=== PATIENT | female | born 1930 | race Caucasian/White ===

== ENCOUNTER → 2017-06-02 | Outpatient (CLI) | payer MEDICARE ==
[~2017-06-02] MED LIST: SODIUM CHLORIDE 0.9% 500 ML in EMPTY BAG 1 BAG IV PRN; ZOLEDRONIC ACID 5 MG in SODIUM CHLORIDE 0.9% 100 ML IV ONE
[2017-06-02 10:47] VITALS: BP 177/91; PULSE 79; RESP 18; TEMP 97.7
== END | disposition home or self-care (01) ==
LOC: PROCWHC3 10:18
PROVIDERS: ATTEND Physician Assistant Medical
DX: M81.0 Age-related osteoporosis without current pathological fracture (principal)
CPT/HCPCS: 96365; J3489

== ENCOUNTER → 2017-06-09 | Outpatient (CLI) | payer MEDICARE ==
--- NOTE | 2017-06-10 11:02 | MM ---
Reason for exam: screening (asymptomatic). Last mammogram was performed 1 year and 1 month ago. History: Patient history of other cancer. Family history of breast cancer in mother at age 60. Physical Findings: A clinical breast exam by your physician is recommended on an annual basis and results should be correlated with mammographic findings. MG Screening Mammo w CAD Bilateral CC and MLO view(s) were taken. Prior study comparison: May 23, 2016, mammogram, performed at [facility]. May 10, 2015, mammogram, performed at [facility]. There are scattered fibroglandular densities. There is no discrete abnormality. No significant changes when compared with prior studies. ASSESSMENT: Negative, BI-RAD 1 RECOMMENDATION: Routine screening mammogram of both breasts in 1 year.
== END | disposition home or self-care (01) ==
LOC: RADMAMWWP 10:39
PROVIDERS: ATTEND Family Medicine
DX: Z12.31 Encounter for screening mammogram for malignant neoplasm of breast (principal)

== ENCOUNTER 2020-01-21 14:46 | Emergency (ER) | payer MEDICARE ==
--- NOTE | 2020-01-21 15:45 | XR ---
EXAMINATION TYPE: XR pelvis AP view DATE OF EXAM: 01/21/2020 CLINICAL HISTORY: pain TECHNIQUE: Single view the pelvis is submitted. FINDINGS: No evidence for fracture, dislocation or bony lesion. Joint spaces are well-preserved. S I joints appear symmetric. IMPRESSION: 1. No acute fracture or dislocation seen. ICD 10 NO FRACTURE, INITIAL EVALUATION
--- NOTE | 2020-01-21 15:47 | XR ---
EXAMINATION TYPE: XR lumbar spine 2 or 3V DATE OF EXAM: 01/21/2020 CLINICAL HISTORY: pain TECHNIQUE: Three views of the lumbar spine are submitted. COMPARISON: None. FINDINGS: Mild loss of height involving the superior endplate of L3 with loss of height estimated at 25%. No o bvious bony retropulsion seen. Retrolisthesis of L3 on L4 of 4 mm. Anterolisthesis of L4 and L5 of 5 mm. Moderate to severe multilevel degenerative disc space narrowing and spondylosis. Severe facet brain nt arthropathy. IMPRESSION: Mild superior endplate compression fracture of L3
[2020-01-21 15:55] VITALS: BP 162/85; PULSE 87; RESP 18; TEMP 99.5
[2020-01-21] MEDS ORDERED: ACET/COD 300 MG/30 MG STARTER PACK 6 TAB BTL PO STA (16:21)
--- NOTE | 2020-01-21 16:23 | ED ---
Back Pain HPI - General Chief Complaint: Back Pain/Injury Stated Complaint: Fall Time Seen by Provider: 01/21/20 14:55 Source: patient, family - History of Present Illness Initial Comments: 89-year-old feel present for low back pain. Patient states that when the restroom trying to burp pants she fell backwards falling onto her bottom. Patient states that she has had low back pain since. Patient states that she has had no difficulty urinating denies any loss of bowel bladder control denies a weakness or loss of sensation of the lower extremities. Patient states she has been moving slower than normal secondary to the pain. Patient denies any upper back or neck pain denies any injury to the head. Patient denies any injury to the chest or abdomen. Patient denies a PT inspiration. She states that she has no injuries of her upper or lower extremities. Patient is able to weight-bear without difficulty remaining review of systems negative upon arrival patient appears well signs of acute distress - Related Data Home Medications Medication Instructions Recorded Confirmed Ergocalciferol [Vitamin D2 50,000 unit PO Q7D 05/22/14 06/02/17 (DRISDOL)] Solifenacin Succinate [Vesicare] 10 mg PO DAILY 05/22/14 06/02/17 Montelukast [Singulair] 10 mg PO DAILY 05/26/16 06/02/17 metFORMIN HCL [Glucophage] 500 mg PO DAILY 05/26/16 06/02/17 Previous Rx's Medication Instructions Recorded Acetaminophen with Codeine 1 tab PO Q6H PRN 3 Days #12 tab 01/21/20 [Tylenol w/codeine #3] Allergies Allergy/AdvReac Type Severity Reaction Status Date / Time No Known Allergies Allergy Verified 01/21/20 14:53 Review of Systems ROS Statement: Those systems with pertinent positive or pertinent negative responses have been documented in the HPI. ROS Other: All systems not noted in ROS Statement are negative. Past Medical History Past Medical History: Cancer, GERD/Reflux, Hyperlipidemia Additional Past Medical History / Comment(s): hx cervical ca-1972, skin cancer (R) leg History of Any Multi-Drug Resistant Organisms: None Reported Past Surgical History: Back Surgery, Bladder Surgery, Hernia Repair, Hysterectomy, Orthopedic Surgery Additional Past Surgical History / Comment(s): BILAT CTR, FACE LIFT 1983, TUMMY TUCK-2001, LT KNEE SCOPE Past Anesthesia/Blood Transfusion Reactions: Motion Sickness Smoking Status: Former smoker Past Alcohol Use History: None Reported Past Drug Use History: None Reported General Exam - General Exam Comments Initial Comments: General: The patient is awake and alert, in no distress Eye: +3 mm pupils are equal, round and reactive to light, extra-ocular movements are intact. No nystagmus. There is normal conjunctiva bilaterally. No signs of icterus. Cardiovascular: There is a regular rate and rhythm. No murmur, rub or gallop is appreciated. Respiratory: Lungs are clear to auscultation, respirations are non-labored, breath sounds are equal. No wheezes, stridor, rales, or rhonchi. Gastrointestinal: Soft, non-distended, non-tender abdomen without masses or o rganomegaly noted. There is no rebound or guarding present. Musculoskeletal: Normal inspection of the cervicothoracic and lumbar spine. Patient is very minimal midline tenderness very mild at the base of the lumbar spine. Patient has paravertebral tenderness and tension palpable. Normal ROM of the lower extremity bilaterally she states this doesn't do some pain in the lower back. Strength 5/5 of the lower extremity is equal comparison bilaterally. Weightbears and elevates that difficulty Sensation intact of the lower extremity including the saddle region. Radial and DP pulses equal bilaterally 2+. Neurological: A&O x 3. CN II-XII intact grossly, There are no obvious motor or sensory deficits. Coordination appears grossly intact. Speech is normal. Skin: Skin is warm and dry and no rashes or lesions are noted. Psychiatric: Cooperative, appropriate mood & affect, normal judgment. Course Vital Signs 01/21/20 01/21/20 01/21/20 14:50 15:53 16:25 Temperature 99.9 F H 99.5 F 99.5 F Pulse Rate 78 87 87 Respiratory 16 18 18 Rate Blood Pressure 153/75 162/85 162/85 O2 Sat by Pulse 95 97 97 Oximetry Medical Decision Making - Medical Decision Making 89-year-old female presenting for cc of low back pain after fall. some mild midline tenderness, no LE weakness. no genitourinary complaints. Sesnation intact of the LE b/l. patient XR revealed a superior end plate compression fracture of L3. Patient has some noted retrolisthesis L4 was significant degenerative changes of the spine. Patient denies radiation of pain down legs. Patient appears well ambulatory. reviewed imaging with attending Lokesh Travis who is agreeable to discharge with TLSO brace rx and orthopedic spine f/u. Return parameters and importance of f/u were disucssed at length. patient provided pain medication and opioid start talking form discussed at length. Patient discharged appearing wel. Disposition Clinical Impression: L3 vertebral fracture, Retrolisthesis of vertebrae, Fall, Low back pain Disposition: HOME SELF-CARE Condition: Good Instructions (If sedation given, give patient instructions): Vertebral Compression Fracture (ED) Additional Instructions: Please use medication as discussed. Please follow-up with family doctor in 2 days, see [facility] and return for loss of bowel/bladder control, unable to urinate, weakness or loss of sensation of lower extremities. Please return to emergency room if the symptoms increase or worsen or for any other concerns. Prescriptions: Acetaminophen with Codeine [Tylenol w/codeine #3] 1 tab PO Q6H PRN 3 Days #12 tab PRN Reason: Severe Pain Is patient prescribed a controlled substance at d/c from ED?: Yes When asked, does pt state using other controlled substances?: No If prescribed controlled substance>3 days was MAPS reviewed?: Prescribed <3 Days If opioid is for acute pain is fill amount 7 days or less?: Yes If Rx opioid, was Start Talking consent form obtained?: Yes Referrals: Tamia Medina DO [Primary Care Provider] - 1-2 days Nehemiah Yuan DO [Doctor of Osteopathic Medicine] - 1-2 days Time of Disposition: 16:23
== END 2020-01-21 16:32 | disposition home or self-care (01) ==
LOC: EC 14:46
DX: M48.56XA Collapsed vertebra, not elsewhere classified, lumbar region, initial encounter for fracture (principal); M43.16 Spondylolisthesis, lumbar region; Z87.891 Personal history of nicotine dependence; Z85.41 Personal history of malignant neoplasm of cervix uteri; Z85.828 Personal history of other malignant neoplasm of skin
CPT/HCPCS: 72100; 72170; 99283

== ENCOUNTER → 2020-02-08 | Outpatient (CLI) | payer MEDICARE ==
[2020-02-08 11:16] LABS: Basophils % (A) 1 %; Eosinophils % (A) 0 %; HCT 39.7 % (34.0-46.0); HGB 13.6 gm/dL (11.4-16.0); Lymphocytes # (A) 1.3 k/uL (1.0-4.8); Lymphocytes % (A) 21 %; MCH 33.2 pg (25.0-35.0); MCHC 34.2 g/dL (31.0-37.0); MCV 97.1 fL (80.0-100.0); Mean Platelet Volume 7.1; Monocytes # (A) 0.3 k/uL (0-1.0); Monocytes % (A) 5 %; Neutrophils # (A) 4.6 k/uL (1.3-7.7); Neutrophils % (A) 72 %; Platelet Count 265 k/uL (150-450); RBC 4.09 m/uL (3.80-5.40); WBC 6.4 k/uL (3.8-10.6)
[2020-02-08 11:33] LABS: Calcium 9.8 mg/dL (8.4-10.2); Potassium 4.2 mmol/L (3.5-5.1)
[2020-02-08 11:57] LABS: Partial Thromboplastin Time 23.4 sec (22.0-30.0); Prothrombin Time 10.1 sec (9.0-12.0)
--- NOTE | 2020-02-08 14:52 | XR ---
EXAMINATION TYPE: XR chest 2V DATE OF EXAM: 02/08/2020 COMPARISON: 02/12/2011 INDICATION: Presurgical testing TECHNIQUE: Frontal and lateral views of the chest are obtained. FINDINGS: The heart size is normal. The pulmonary vasculature is normal. The lungs are clear. IMPRESSION: 1. No acute pulmonary process.
== END | disposition home or self-care (01) ==
LOC: LABPAT 09:34
PROVIDERS: ATTEND Orthopaedic Surgery Orthopaedic Surgery of the Spine
DX: Z01.818 Encounter for other preprocedural examination (principal); M84.40XA Pathological fracture, unspecified site, initial encounter for fracture
CPT/HCPCS: 36415; 71046; 80048; 85025; 85610; 85730; 86850; 86900; 86901; 93005

== ENCOUNTER 2020-02-13 09:15 | Observation (INO) | payer MEDICARE ==
[~2020-02-13 09:15] MED LIST changes: +DEXAMETHASONE SOD PHOSPHATE 10 MG/ML 1 ML VIAL IV ONE; +LIDOCAINE 1% (10MG/ML) FOR IV START INTRADERMA PRN; +ONDANSETRON 4 MG/2 ML VIAL IVP ONE; -SODIUM CHLORIDE 0.9% 500 ML in EMPTY BAG 1 BAG IV PRN; -ZOLEDRONIC ACID 5 MG in SODIUM CHLORIDE 0.9% 100 ML IV ONE; +ceFAZolin 1,000 MG in SODIUM CHLORIDE 0.9% IRRIGATIO 1,000 ML IRRIGATION ONE
[2020-02-13] MEDS ORDERED: ONDANSETRON 4 MG/2 ML VIAL ONE (09:42)
[2020-02-13 10:10] LABS: Glucose,Whole Blood 109 mg/dL (75-99)
[2020-02-13] MEDS: LACTATED RINGERS 1,000 ML IV SCH ×2 (10:10→17:55)
[2020-02-13] MEDS ORDERED: SUCCINYLCHOLINE CHLORIDE 100 MG/5 ML SYR IV ONE (10:15)
[2020-02-13] MEDS ORDERED: fentaNYL (PF) 50 MCG/ML 2 ML AMP ONE (10:15)
[2020-02-13] MEDS ORDERED: MIDAZOLAM 2 MG/2 ML VIAL ONE (10:15)
[2020-02-13] MEDS ORDERED: ePHEDrine SULFATE/0.9% NACL/PF 50 MG/5 ML SYRINGE IV ONE (10:15)
[2020-02-13] MEDS ORDERED: PHENYLEPHRINE-0.9% NACL SYG 1 MG/10 ML SYRINGE ONE (10:15)
[2020-02-13] MEDS ORDERED: PROPOFOL 10 MG/ML 20 ML VIAL IV ONE (10:15)
[2020-02-13] MEDS ORDERED: BUPIVACAINE (PF) 0.5% 30 ML VIAL SQ ONE ×2 (10:37→10:45)
[2020-02-13] MEDS ORDERED: IOPAMIDOL M200 10 ML VIAL MISCELLANE ONE ×2 (10:38→10:58)
[2020-02-13] MEDS ORDERED: ONDANSETRON 4 MG/2 ML VIAL IVP PRN (11:15)
[2020-02-13] MEDS ORDERED: IBUPROFEN 600 MG TAB PO PRN (11:15)
--- NOTE | 2020-02-13 11:20 | P.OP ---
Date of Procedure: 02/13/20 Preoperative Diagnosis: L3 osteoporotic vertebral compression fracture Status post fall at home Low back pain Failed conservative treatment. All 3 vertebral compression fracture Postoperative Diagnosis: Same Anesthesia: GETA Pathology: other (L3 vertebral body biopsy to pathology) Condition: stable Description of Procedure: BRIEF OPERATIVE NOTE Preoperative Diagnosis: L3 osteoporotic vertebral compression fracture Status post fall at home Low back pain Failed conservative treatment. L3 vertebral compression fracture Postoperative Diagnosis: Same Procedure: Kyphoplasty of L3 Vertebral body biopsy of L3 Use of biplanar fluoroscopic guidance Surgeon: Dr. Yuan Accounting Lecturer: Frank Jerry is present throughout the entire the case persistence during positioning, dissection, exposure, visualization, and all crucial elements of the case as well as closure. Anesthesia: General anesthesia per Dr. Mar Estimated blood loss: Less than 10 mL Specimen: Vertebral body of L3 biopsy sent to pathology in formalin Complications: None apparent Components implanted: Bone cement approximately 7 mL Disposition: To recovery room in good stable condition. OPERATIVE INDICATIONS The patient has been having issues in their back ever since sustaining an injury. She has history of some degenerative changes at her lumbar spine but sh e had significant worsening of her symptoms in her back after her fall. She is found have new L3 vertebral compression fracture and she attempted conservative treatment bracing. Despite bracing should continue to have severe pain and difficulty with any sort of mobilization ambulation. She is also having evidence of further collapse of vertebral body of L3. She denied any new issues in her lower extremities. The patient has been through conservative treatment. They attempted conservative care with bracing however they're not having any benefit despite brace use. They continue to have significant pain and debility due to their fracture. We discussed various treatment options including surgery, and the patient wishes to proceed with surgery We discussed the risk, patient's alternatives and benefits of surgery including but not limited to, risk of bleeding risk of infection, risk of need for further surgery, risk of decreased, loss of motion, loss of function, cement extravasation, nerve damage, paralysis, heart attack, blindness and . OPERATIVE SUMMARY After discussing all the risks, patient alternatives and benefits at length, the patient elected to proceed with surgical intervention, signed informed consent, and presented for their procedure. The patient was seen and examined in the preoperative holding area and the surgical site was marked. The patient was giv en antibiotics and brought to the operating room. The patient was sedated and intubated by anesthesia in standard fashion. The patient was positioned on to the operating room table in a prone position on the appropriate well-padded and well molded bilateral chest rolls. We were careful to pad any bony prominences and pressure points. We were careful to maintain the patient's cervical spine and good neutral alignment and position throughout. We used 2 C-arm machines to establish biplanar fluoroscopic guidance in AP and lateral positions. We were able to localize the fractures appropriately at L3. The patient was prepped and draped in a normal standard fashion. An appropriate timeout and keystone protocol performed. We were able to proceed with the surgery. The local wound area was infiltrated with local anesthetic. An incision was made over the lateral aspect of the pedicle over the appropriate levels with a small 2 mm stab incision on the right of L3. Intraoperative fluoroscopy was taken which showed a marker at the appropriate level. With the appropriate level positively confirmed, I was able to position a sharp trocar over the lateral aspect of the pedicle. As able to advance the trocar into the pedicle and into the posterior aspect of vertebral body being careful to avoid penetration cephalad caudad or medially. The trocar was placed appropriately into the posterior aspect of vertebral body at the appropriate levels. This was confirmed with C-arm guidance. With the trocar intact I was then able to take a bone biopsy with a biopsy punch . The biopsy of L3 vertebral body specimen was passed off to be sent to pathology in formalin. I was then able to place the kyphoplasty balloon within the vertebral body. The position was checked on C-arm. I was able to inflate the balloon under low pressure and visualization with C-arm. The balloon was well enclosed within the vertebral body. The cement was prepared. With the cement at appropriate working condition the balloons were deflated and removed. I was able to place bony cement with trocar with the cement delivery device under low pressure. It had good fill within the vertebral body. The cement spread nicely although it across the vertebral body. It seemed as though he may have gained some weight vertebral body itself. We placed a 7 mL of bone cement within the vertebral body There is no evidence of any extravasation of the cement posteriorly toward the canal. The cement was well contained at the appropriate levels. The cement was allowed to cure appropriately. The trochars removed and final images were taken on C-arm. This showed the cement at the appropriate levels. We were able to proceed with closure. The wound was cleaned and dried and dressed with the appropriate dressing. The drapes were broken down. The patient was gently rolled back onto their hospital bed being careful to maintain their cervical spine and good neutral alignment and position. They were woken up by anesthesia, extubated, and brought to the recovery room in good stable condition. The patient will be admitted to the hospital for observation and for appropriate postoperative care, medical management and monitoring. We will continue to follow them closely about the postoperative course.
--- NOTE | 2020-02-13 11:27 | FL ---
EXAMINATION TYPE: FL guidance operating room, XR lumbar spine 2 or 3V DATE OF EXAM: 02/13/2020 CLINICAL HISTORY: Low back pain. Compression fracture. TECHNIQUE: Fluoroscopy. Intraoperative 2 views lumbar spine. COMPARISON: Lumbar spine x-ray January 21, 2020.. FINDINGS: Fluoroscopic guidance was provided during kyphoplasty procedure performed by Dr. Yuan. A total of 61 seconds of fluoroscopic time was utilized during the procedure and 2 spot intraoperative images are acquired. Intraoperative images obtained show vertebroplasty at mild to moderate compression type fracture of L 3 vertebra with stable alignment. IMPRESSION: As Above.
[2020-02-13] MEDS: HYDROmorphone 0.5 MG/0.5 ML SYRINGE IVP PRN ×3 (11:32→11:50)
[2020-02-13] MEDS: KETOROLAC 30 MG/ML 1 ML VIAL IVP PRN (11:35)
[2020-02-14] MEDS: KETOROLAC 30 MG/ML 1 ML VIAL IVP PRN (03:41)
[2020-02-14] MEDS: HYDROcodone/APAP 5-325MG 1 EACH TAB PO PRN ×2 (05:31→09:12)
[2020-02-14] MEDS ORDERED: traMADol 50 MG TAB PO PRN (09:47)
--- NOTE | 2020-02-14 09:48 | P.PN ---
Subjective Progress Note Date: 02/14/20 Principal diagnosis: Status post kyphoplasty of L3 This is an 89 year-old female post L3 kyphoplasty. This is post-op day 1. The patient was evaluated at the bedside today. No family at the bedside but I did speak with the patient's daughter on the phone. The patient denies nausea, vomiting, abdominal pain, shortness of breath, and chest pain this morning. She does seem confused this morning and the patient's daughter states that is not her baseline. She states her pain is controlled at this time. The patient has not been up with physical therapy. Objective - Vital Signs Vital signs: Vital Signs Temp 98.8 F 02/14/20 07:54 Pulse 82 02/14/20 07:54 Resp 16 02/14/20 07:54 BP 169/82 02/14/20 07:54 Pulse Ox 100 02/14/20 07:54 Intake & Output 02/13/20 02/14/20 02/14/20 18:59 06:59 18:59 Intake Total 890 Balance 890 Weight 56 kg Intake: IV 650 Oral 240 Other: Voiding Method Diaper Incontinent # Voids 1 1 - Exam The patient is an 89-year-old female who is in no acute distress. She is alert and oriented 1. Abdomen is soft and nontender. Chest has good excursion with deep inspiration. Incision site is intact with a small amount of sanginous drainage. No erythema or purulent drainage. Extremities has not had neurological change from prior to surgery. She has sustained dorsiflexion and plantar flexion and EHL function. She has good foot and ankle motion. Bilateral calves are soft and nontender. Neurological and circulatory status is intact. - Labs Labs: Abnormal Lab Results - Last 24 Hours (Table) 02/13/20 Range/Units 10:02 POC Glucose (mg/dL) 109 H (75-99) mg/dL Assessment and Plan (1) Status post kyphoplasty Current Visit: Yes Status: Acute Code(s): Z98.890 - OTHER SPECIFIED POSTPROCEDURAL STATES SNOMED Code(s): 668122884 (2) L3 vertebral fracture Current Visit: No Status: Acute Code(s): S32.039A - UNSP FRACTURE OF THIRD LUMBAR VERTEBRA, INIT FOR CLOS FX SNOMED Code(s): 235784727 Plan: 1. Continue pain control, we will switch to Ultram for pain. 2. SCDs for DVT prophylaxis 3. Start physical therapy and ambulation 4. Anticipate discharge home either later today or tomorrow depending on patient's confusion.
[2020-02-14] MEDS: Acetaminophen-Codeine 300-30mg TAB PO PRN (11:36)
[2020-02-14 18:56] LABS: Appearance,Urine Clear (Clear); Bacteria,Urine Rare /hpf; Bilirubin,Urine Negative (Negative); Blood,Urine Negative (Negative); Color,Urine Light Yellow; Glucose,Urine (UA) Negative (Negative); Ketones,Urine Negative (Negative); Leukocyte Esterase,Urine Small (Negative); Mucus,Urine Rare /hpf; Nitrite,Urine Negative (Negative); Protein,Urine Negative (Negative); RBC,Urine 1 /hpf (0-5); Specific Gravity,Urine 1.007 (1.001-1.035); Squamous Epithelial Cell,Urine 2 /hpf (0-4); Urobilinogen,Urine <2.0 mg/dL (<2.0); WBC,Urine 5 /hpf (0-5)
[2020-02-14 19:14] VITALS: BMI 19.3
[2020-02-14] MEDS: LACTATED RINGERS 1,000 ML IV SCH (20:15)
[2020-02-14] MEDS ORDERED: NON FORMULARY DRUG (Mirabegron [Myrbetriq] 50 MG) PO SCH (21:00)
[2020-02-14] MEDS ORDERED: OXYBUTYNIN CHLORIDE 5 MG TAB PO SCH (21:00)
[2020-02-14] MEDS: MONTELUKAST 10 MG TAB PO SCH (22:04)
[2020-02-14] MEDS: OXYBUTYNIN XL 5 MG TAB.ER.24 PO SCH (22:04)
[2020-02-14] MEDS: LOSARTAN 50 MG TAB PO SCH (22:05)
[2020-02-14] MEDS: traZODone HCL 50 MG TAB PO SCH (22:05)
--- NOTE | 2020-02-15 09:00 | P.CONS ---
History of Present Illness - Reason for Consult Consult date: 02/14/20 medical eval Requesting physician: Nehemiah Yuan - History of Present Illness Russ Brown is an 89 yo F who is admitted for L3 kyphoplasty. She is postop day #1 today, she does complain of low back pain that is incompletely controlled. Patient denies chest pain, fevers, chills, shortness of breath, nausea, vomiting. She has not been up ambulating with physical therapy. Review of Systems All systems: negative Constitutional: Denies chills, Denies fever Eyes: denies blurred vision, denies pain Ears, nose, mouth and throat: Denies headache, Denies sore throat Cardiovascular: Denies chest pain, Denies shortness of breath Respiratory: Denies cough Gastrointestinal: Denies abdominal pain, Denies diarrhea, Denies nausea, Denies vomiting Genitourinary: Denies dysuria, Denies hematuria Musculoskeletal: Reports as per HPI, Reports fractures, Denies myalgias Integumentary: Denies pruritus, Denies rash Neurological: Denies numbness, Denies weakness Psychiatric: Denies anxiety, Denies depression Endocrine: Denies fatigue, Denies weight change Past Medical History Past Medical History: Cancer, Eye Disorder, Hyperlipidemia, Hypertension, Memory Impairment, Musculoskeletal Disorder, Osteoarthritis (OA) Additional Past Medical History / Comment(s): hx cervical ca-1972, skin cancer (R) leg, fell 3 weeks ago & fx. vertebrae, urinary incontinence, takes metformin to suppress appetite, not for diabetes per daughter although recently not eating much because of back pain History of Any Multi-Drug Resistant Organisms: None Reported Past Surgical History: Back Surgery, Bladder Surgery, Hernia Repair, Hysterectomy, Orthopedic Surgery Additional Past Surgical History / Comment(s): BILAT CTR, FACE LIFT 1983, TUMMY TUCK-2000, LT KNEE SCOPE, bladder suspension Past Anesthesia/Blood Transfusion Reactions: Motion Sickness Past Psychological History: No Psychological Hx Reported Smoking Status: Former smoker Past Alcohol Use History: None Reported Additional Past Alcohol Use History / Comment(s): quit smoking 40 yrs. ago, probably smoked for about 20 yrs. per daughter Past Drug Use History: None Reported - Past Family History Mother Family Medical History: No Reported History Medications and Allergies Home Medications Medication Instructions Recorded Confirmed Type Ergocalciferol [Vitamin D2 1.25 mg PO Q7D 05/22/14 02/13/20 History (DRISDOL)] Montelukast [Singulair] 10 mg PO HS 05/26/16 02/13/20 History metFORMIN HCL [Glucophage] 500 mg PO DAILY 05/26/16 02/13/20 History Acetaminophen with Codeine 1 tab PO Q6H PRN 3 Days #12 tab 01/21/20 02/13/20 Rx [Tylenol w/codeine #3] Losartan [Cozaar] 25 mg PO HS 02/07/20 02/13/20 History Mirabegron [Myrbetriq] 50 mg PO HS 02/07/20 02/13/20 History Tozal Eye Vitamin 1 tab PO DAILY 02/07/20 02/13/20 History Acetaminophen-Codeine 300-30mg 1 tab PO Q4-6H PRN #40 tablet 02/14/20 Rx [Tylenol #3] Allergies Allergy/AdvReac Type Severity Reaction Status Date / Time No Known Allergies Allergy Verified 02/07/20 14:44 Physical Exam Vitals: Vital Signs Temp Pulse Pulse Resp BP Pulse Ox 02/15/20 08:00 81 18 02/15/20 07:45 98.4 F 81 18 149/79 96 02/15/20 03:19 14 02/15/20 02:45 98.3 F 100 15 169/73 95 02/14/20 23:20 14 02/14/20 20:03 98.3 F 88 14 137/76 96 02/14/20 19:12 14 02/14/20 16:00 84 84 16 02/14/20 14:49 97.8 F 84 16 118/70 93 L 02/14/20 11:20 98.7 F 94 18 171/82 92 L Intake and Output 02/14/20 02/15/20 02/15/20 22:59 06:59 14:59 Other: Voiding Method Diaper Diaper Diaper Incontinent Incontinent Incontinent # Voids 1 1 1 Weight 56 kg Gen.: Frail elderly female in no acute distress HEENT: Normocephalic, atraumatic, mucous membranes moist Neck: Supple, no thyromegaly, no JVD CV: Regular rate and rhythm, no murmur, pulses 2+ Lungs: Normal effort, clear throughout Abdomen: Soft, nontender, nondistended Neuro: Alert and oriented, no focal deficits Skin: Warm and dry Results Labs: Abnormal Lab Results - Last 24 Hours (Table) 02/14/20 Range/Units 18:30 Ur Leukocyte Esterase Small H (Negative) Urine Bacteria Rare H (None) /hpf Urine Mucus Rare H (None) /hpf Assessment and Plan (1) Overactive bladder Current Visit: Yes Status: Acute Code(s): N32.81 - OVERACTIVE BLADDER SNOMED Code(s): 858723706 (2) Type 2 diabetes mellitus Current Visit: Yes Status: Acute Code(s): E11.9 - TYPE 2 DIABETES MELLITUS WITHOUT COMPLICATIONS SNOMED Code(s): 15925803 (3) Status post kyphoplasty Current Visit: Yes Status: Acute Code(s): Z98.890 - OTHER SPECIFIED POSTPROCEDURAL STATES SNOMED Code(s): 733494925 (4) L3 vertebral fracture Current Visit: No Status: Acute Code(s): S32.039A - UNSP FRACTURE OF THIRD LUMBAR VERTEBRA, INIT FOR CLOS FX SNOMED Code(s): 177571335 Plan: 1. L3 compression fracture, status post L3 kyphoplasty. Management per primary, pain control, encourage PT 2. Type 2 diabetes. Continue home metformin 3. Hypertension. Continue losartan 4. Overactive bladder. Hold home a myrbetric, start ditropan XL 5. Insomnia. Trazodone prn
[2020-02-15] MEDS: Acetaminophen-Codeine 300-30mg TAB PO PRN ×2 (09:55→17:26)
[2020-02-15] MEDS: metFORMIN 500 MG TAB PO SCH (09:58)
--- NOTE | 2020-02-15 11:30 | P.PN ---
Subjective Progress Note Date: 02/15/20 Russ Brown is an 89 yo F who is admitted for L3 kyphoplasty. She is postop day #1 today, she does complain of low back pain that is incompletely controlled. Patient denies chest pain, fevers, chills, shortness of breath, nausea, vomiting. She has not been up ambulating with physical therapy. 02/15/2020 sitting up in bed, no acute distress. Sensorium improved, less confusion today. Reports pain controlled. Passing flatus. Complained of urinary incontinence yesterday, ditropan initiated last night. Evaluated by PT OT yesterday, ambulating in hallway, tolerating exertion well-recommending home with 24 7 supervision secondary to confusion. This morning has not yet been out of bed. Denies chest pain, palpitations or shortness of breath. Staff reports consuming 50% of diet. No nausea vomiting or diarrhea. Objective - Vital Signs Vital signs: Vital Signs Temp 98.4 F 02/15/20 07:45 Pulse 81 02/15/20 08:00 Resp 18 02/15/20 08:00 BP 149/79 02/15/20 07:45 Pulse Ox 96 02/15/20 07:45 Intake & Output 02/14/20 02/15/20 02/15/20 18:59 06:59 18:59 Weight 56 kg Other: Voiding Method Diaper Diaper Incontinent Incontinent Incontinent # Voids 2 1 1 - Exam Gen.: Frail elderly female in no acute distress HEENT: Normocephalic, atraumatic, mucous membranes moist Neck: Supple, no thyromegaly, no JVD CV: Regular rate and rhythm, no murmur, pulses 2+ Lungs: Normal effort, clear throughout Abdomen: Soft, nontender, nondistended Neuro: Alert and oriented 2, no focal deficits Skin: Warm and dry - Labs Labs: Abnormal Lab Results - Last 24 Hours (Table) 02/14/20 Range/Units 18:30 Ur Leukocyte Esterase Small H (Negative) Urine Bacteria Rare H (None) /hpf Urine Mucus Rare H (None) /hpf Assessment and Plan Assessment: (1) Overactive bladder Current Visit: Yes Status: Acute Code(s): N32.81 - OVERACTIVE BLADDER SNOMED Code(s): 901326675 (2) Type 2 diabetes mellitus Current Visit: Yes Status: Acute Code(s): E11.9 - TYPE 2 DIABETES MELLITUS WITHOUT COMPLICATIONS SNOMED Code(s): 71514033 (3) Status post kyphoplasty Current Visit: Yes Status: Acute Code(s): Z98.890 - OTHER SPECIFIED PO STPROCEDURAL STATES SNOMED Code(s): 645939258 (4) L3 vertebral fracture Current Visit: No Status: Acute Code(s): S32.039A - UNSP FRACTURE OF THIRD LUMBAR VERTEBRA, INIT FOR CLOS FX SNOMED Code(s): 029020930 (5) insomnia Plan: Continue on current medication regime ,monitoring and symptomatic treatment. As mentioned above less confusion today. Recommending PT reevaluate this morning. Discussed with RN who will notify orthopedic surgery regarding physical therapy's reevaluation recommendations. Pain management/discharge planning as per primary-orthopedic surgery. The impression and plan of care has been dictated as directed. : I performed a history and examination of this patient, discussed the same with the dictator. I agree with the dictator's note ,documented as a scribe. Any additional findings or plans will be noted.
--- NOTE | 2020-02-15 11:31 | P.PN ---
Progress Note - Text Progress Note Date: 02/15/20 Orthopedic Spine: History of present illness: Patient is a pleasant 79-year-old female who is seen and examined at bedside for further evaluation following L3 kyphoplasty and biopsy performed on 02/13/2020. Postoperatively the patient had been expressing significant confusion Thursday and Thursday. Nursing states patient had been pretty immobile yesterday evening with her confusion. Today the patient is much more awake, alert, and oriented. She is able to answer questions appropriately. She states she does continue to have back pain at the surgical site in her lower lumbar spine. She's been less mobile today. She is generally weak in her bilateral lower extremities. She does not feel she'll be ready for discharge home currently. Patient's family feels they had some difficulty taking care of her home prior to her surgery due to her difficulty with mobilization and ambulation. Patient continues to be seen examined by medicine diagnosis including hyperlipidemia and diabetes mellitus type 2. Patient is voiding without difficulty. Patient is currently taking Tylenol #3 as prescribed as needed for pain control. Other narcotics cause increased confusion previously. Physical Exam: Status post surgical day number 2 Patient is awake, alert, and oriented 3 Vital signs stable Good chest excursion with deep inspiration and expiration Dorsiflexion, plantarflexion, and extensor hallucis longus positive sustained bilaterally but generally weak and movements slow Patient is able to move the bilateral lower extremities but is generally weak globally active range of motion Patient has difficulty lifting her legs off the bed independently Dressing over the surgical site at L3 is dry and intact with some dried blood; no active drainage from the surgical site No signs or symptoms of DVT; no calf pain Dressing is clean, dry, and intact; no erythema, purulence, or signs of infection Assessment: Status post L3 kyphoplasty with biopsy Lumbar pain Generalized weakness bilateral lower extremities Difficulties mobilization and ambulation Hyperlipidemia Diabetes mellitus type 2 Plan: 1. Patient had been experiencing increased confusion postoperatively on 02/13/2020 and 02/14/2020. She's had significant improvement of her cognition as compared to yesterday. She is awake, alert, oriented and answering questions appropriately. She does have generalized weakness of the bilateral lower extremities and has difficulty with ambulation. She has weakness with lifting her legs off the bed independently bilaterally. Patient has been discussed in detail with the patient's family and medicine. Patient's family states they had some difficulty caring for her at home. Patient and the patient's family state given her current health status and difficulty with mobilization, they feel she could be a good candidate for rehabilitation. Patient has been discussed with medicine that the patient has been in observation status following the L3 kyphoplasty and biopsy. Medicine will plan to discuss the patient with case management and try to have the patient's admit status changed to inpatient. We did discuss patient will need a 3 night inpatient hospital stay in order to qualify for a rehabilitation facility at the time of discharge. This may be adjusted to a lesser time if it'll be approved through the workup by case management. Patient is encouraged to work with physical therapy to increase her mobility and ambulation. We will continue pain control with Tylenol #3 as prescribed as needed for control of her symptoms. Patient is Tegaderm dressing remains intact over the L3 kyphoplasty site. We discussed patient may shower with dressing intact. We will continue to follow patient closely. Patient will most likely remain in the hospital overnight until this coming 02/18/2020, at which time we'll plan for discharge to a rehabilitation facility if approved. Following discharge, patient may follow-up with Frank Vasquez PA-C or Dr. Aryan Yuan at [facility] in 2-3 weeks following discharge. 2. Patient will continue be seen examined by medicine for treatment and evaluation of her other medical diagnoses including hyperlipidemia and diabetes mellitus type 2
[2020-02-15 14:26] LABS: Glucose,Whole Blood 135 mg/dL (75-99)
[2020-02-15] MEDS: INSULIN ASPART (NovoLOG) 100 UNIT/ML VIAL SQ SCH ×3 (14:38→21:14)
[2020-02-15 16:36] LABS: Glucose,Whole Blood 108 mg/dL (75-99)
[2020-02-15 20:16] LABS: Glucose,Whole Blood 127 mg/dL (75-99)
[2020-02-15] MEDS: LOSARTAN 50 MG TAB PO SCH (21:16)
[2020-02-15] MEDS: MONTELUKAST 10 MG TAB PO SCH (21:16)
[2020-02-15] MEDS: traZODone HCL 50 MG TAB PO SCH (21:16)
[2020-02-15] MEDS: OXYBUTYNIN XL 5 MG TAB.ER.24 PO SCH (21:16)
[2020-02-16] MEDS: LACTATED RINGERS 1,000 ML IV SCH (00:05)
[2020-02-16] MEDS: Acetaminophen-Codeine 300-30mg TAB PO PRN (01:16)
[2020-02-16 07:37] LABS: Glucose,Whole Blood 107 mg/dL (75-99)
[2020-02-16 07:40] VITALS: BP 156/90; PULSE 88; RESP 20; TEMP 98.2
[2020-02-16] MEDS: INSULIN ASPART (NovoLOG) 100 UNIT/ML VIAL SQ SCH ×2 (08:08→12:03)
--- NOTE | 2020-02-16 09:52 | P.DS ---
Providers Date of admission: 02/15/20 11:25 Expected date of discharge: 02/16/20 Attending physician: Nehemiah Yuan Consults: 02/13/20 17:22 Consult Physician Routine Consulting Provider: Leonidas Chase Consult Reason/Comments: medical management Do you want consulting provider notified?: Yes Primary care physician: Tamia Medina - Discharge Diagnosis(es) (1) Status post kyphoplasty Current Visit: Yes Status: Acute (2) Type 2 diabetes mellitus Current Visit: Yes Status: Acute (3) L3 vertebral fracture Current Visit: No Status: Acute Hospital Course: Patient is a pleasant 79-year-old female who is status post L3 kyphoplasty and biopsy performed on 02/13/2020. Postoperatively the patient had been expressing significant confusion Thursday and Thursday. Nursing states patient had been pretty immobile yesterday evening with her confusion. Today the patient is much more awake, alert, and oriented. She is able to answer questions appropriately. She states she does continue to have back pain at the surgical site in her lower lumbar spine. Patient is voiding without difficulty. Patient is currently taking Tylenol #3 as prescribed as needed for pain control. Other narcotics cause increased confusion previously. There was some discussion regarding discharge to rehab versus home. The family has decided to take patient home. She may be discharged to home today pending medical clearance. Plan - Discharge Summary Discharge Rx Participant: Yes New Discharge Prescriptions: New Acetaminophen-Codeine 300-30mg [Tylenol #3] 1 tab PO Q4-6H PRN #40 tablet PRN Reason: Pain No Action Ergocalciferol [Vitamin D2 (DRISDOL)] 1.25 mg PO Q7D metFORMIN HCL [Glucophage] 500 mg PO DAILY Montelukast [Singulair] 10 mg PO HS Acetaminophen with Codeine [Tylenol w/codeine #3] 1 tab PO Q6H PRN 3 Days #12 tab PRN Reason: Severe Pain Losartan [Cozaar] 25 mg PO HS Mirabegron [Myrbetriq] 50 mg PO HS Tozal Eye Vitamin 1 tab PO DAILY Discharge Medication List Ergocalciferol [Vitamin D2 (DRISDOL)] 1.25 mg PO Q7D 05/22/14 [History] Montelukast [Singulair] 10 mg PO HS 05/26/16 [History] metFORMIN HCL [Glucophage] 500 mg PO DAILY 05/26/16 [History] Acetaminophen with Codeine [Tylenol w/codeine #3] 1 tab PO Q6H PRN 3 Days #12 tab 01/21/20 [Rx] Losartan [Cozaar] 25 mg PO HS 02/07/20 [History] Mirabegron [Myrbetriq] 50 mg PO HS 02/07/20 [History] Tozal Eye Vitamin 1 tab PO DAILY 02/07/20 [History] Acetaminophen-Codeine 300-30mg [Tylenol #3] 1 tab PO Q4-6H PRN #40 tablet 02/14/20 [Rx] Follow up Appointment(s)/Referral(s): Nehemiah Yuan DO [Doctor of Osteopathic Medicine] - 02/21/20 10:00 am [facility], [NON-STAFF] - Tamia Medina DO [Primary Care Provider] - 02/22/20 2:30 pm Activity/Diet/Wound Care/Special Instructions: Keep site clean. May shower with waterproof Tegaderm intact. Do not soak in a tub. After 72 hours postoperatively, patient May remove dressing and then may shower with area uncovered. Leave Steri-Strips intact and allow them to fray off on their own. May ambulate as tolerated. Avoid heavy or rigorous activity. No repetitive bending twisting or lifting. No overhead work. Discharge Disposition: HOME WITH HOME HEALTH SERVICES
[2020-02-16] MEDS: metFORMIN 500 MG TAB PO SCH (09:58)
[2020-02-16 11:41] LABS: Glucose,Whole Blood 108 mg/dL (75-99)
[2020-02-16] MEDS ORDERED: Acetaminophen-Codeine 300-30mg TAB PO SCH (12:00)
[2020-02-16 17:39] LABS: Hemoglobin A1C 5.3 % (4.0-6.0)
--- NOTE | 2020-02-22 10:02 | CDI ---
Date: 02.22.2020 CDS/Broaching Machine Operator Name: Maria Isabel Harris Phone: If any questions, call Ewa Torres [employer] at [phone] Patient Name: Russ Brown Admit Date 02.17.20 Discharge Date: 02.17.20 ATTENTION: The [facility] Coding Staff appreciate your assistance in clarifying documentation. Please respond to the clarification below the line at the bottom and electronically sign. The [facility] Coding staff will review the response and follow-up if needed. Please note: Queries are made part of the Legal Health Record. If you have any questions, please contact the [employer]. Dear Dr. Yuan In your H&P you have documented traumatic fracture, pt fell. On the OP report you have documented osteoporotic fracture. Please specify whether the fracture was caused by a traumatic fall or osteoporotic fracture. Thank you for your kind consideration. The patient does have osteopenic bones and osteoporosis. She did sustain a fall which caused the traumatic fracture at her spine MTDD
== END 2020-02-16 13:19 | disposition home health service (06) ==
LOC: OR 09:15 → 4SSUR 11:46 → OR 02-15 11:25 → 4SSUR 02-15 11:25
PROVIDERS: ADMIT Orthopaedic Surgery Orthopaedic Surgery of the Spine; ATTEND Orthopaedic Surgery Orthopaedic Surgery of the Spine
DX: R41.0 Disorientation, unspecified (principal); M54.5 Low back pain; S32.030A Wedge compression fracture of third lumbar vertebra, initial encounter for closed fracture; R53.1 Weakness; M47.896 Other spondylosis, lumbar region; M51.37 Other intervertebral disc degeneration, lumbosacral region; M43.16 Spondylolisthesis, lumbar region; M25.78 Osteophyte, vertebrae; E11.9 Type 2 diabetes mellitus without complications; E78.5 Hyperlipidemia, unspecified; F03.90 Unspecified dementia, unspecified severity, without behavioral disturbance, psychotic disturbance, mood disturbance, and anxiety; I10 Essential (primary) hypertension; N32.81 Overactive bladder; G47.00 Insomnia, unspecified; I25.10 Atherosclerotic heart disease of native coronary artery without angina pectoris; Z79.899 Other long term (current) drug therapy; Z79.84 Long term (current) use of oral hypoglycemic drugs; Z97.3 Presence of spectacles and contact lenses; Z87.891 Personal history of nicotine dependence; Z85.41 Personal history of malignant neoplasm of cervix uteri; Z85.828 Personal history of other malignant neoplasm of skin; W18.39XA Other fall on same level, initial encounter; Y93.E8 Activity, other personal hygiene; Y92.012 Bathroom of single-family (private) house as the place of occurrence of the external cause; Z86.69 Personal history of other diseases of the nervous system and sense organs; Z98.890 Other specified postprocedural states; Z90.710 Acquired absence of both cervix and uterus; Z87.898 Personal history of other specified conditions; Z74.09 Other reduced mobility
CPT/HCPCS: 22514; 20225; 97116 ×2; 97161; 97535; 97165; 81001; 88307; 88311; 83036; 72100; G0378 ×2; C1713; J2250; J0690 ×2; J2405 ×2; J3010; J1885 ×2; J2370; J0330; J2704; J1170; Q9966; 86850; 86900; 86901

== ENCOUNTER → 2020-04-26 | Outpatient (CLI) | payer MEDICARE ==
--- NOTE | 2020-04-26 15:05 | US ---
LOWER EXTREMITY VENOUS INSUFFICIENCY CLINICAL HISTORY: L97.089 NONPRESSURE CHRINIC ULCER OF OTHER PART OF. SIDE PERFORMED: Right 1) Color flow is present and patency is documented in the following vessels. No DVT or SVT is noted . EIV Common Femoral Vein Deep Femoral Vein Femoral Vein Popliteal Vein Proximal Calf Veins Greater Saph Vein Upper Small Saph Vein 2) There is venous reflux noted at the following venous levels: none 3) Incompetent perforators are noted at these levels: none IMPRESSION: 1. No significant venous reflux evident during this examination.
--- NOTE | 2020-05-02 10:20 | P.ARTDOP ---
Arterial Doppler LOWER EXTREMITY ARTERIAL DOPPLER: DATE OF SERVICE: 04/26/2020 Reason for study: Right calf ulcer. Doppler waveforms: Multiphasic bilaterally throughout. Good digital waveforms.. Pulse volume recording: []. Pressure gradients: None. Ankle-brachial indices: Greater than 1 bilaterally. Toe brachial indices: 0.74 on the right, 0.79 on the left Impression: Normal study.
== END | disposition home or self-care (01) ==
LOC: RADUSWWP 13:42
PROVIDERS: ATTEND Family Medicine
DX: L97.815 Non-pressure chronic ulcer of other part of right lower leg with muscle involvement without evidence of necrosis (principal); M54.16 Radiculopathy, lumbar region; Z92.3 Personal history of irradiation; Z85.820 Personal history of malignant melanoma of skin
CPT/HCPCS: 93922

== ENCOUNTER 2020-12-14 18:30 | Emergency (ER) | payer MEDICARE ==
[2020-12-14 18:45] VITALS: TEMP 98.2
--- NOTE | 2020-12-14 19:47 | ED ---
General Adult HPI - General Chief complaint: ENT Stated complaint: congestion, choking on phlegm Time Seen by Provider: 12/14/20 19:19 Source: patient Mode of arrival: wheelchair Limitations: no limitations - History of Present Illness Initial comments: 89-year-old female patient presents to the emergency department today for evaluation of productive cough. States that she's had 2 episodes the first lasting around 15 minutes with large amounts of clear sputum production. States today she had an episode lasting over an hour again with large amounts of clear sputum production. States this is unusual for her. Denies any chronic lung conditions. Denies any chest pain or shortness of breath with this. Has not taken any medications for her symptoms. Denies any nausea or vomiting. States she is eating and drinking without difficulty. Patient denies any recent rash, abdominal pain, diarrhea, constipation, back pain, numbness, tingling, dizzin ess, weakness, hematuria, dysuria, urinary urgency, urinary frequency, headache, visual changes, or any other complaints. - Related Data Home Medications Medication Instructions Recorded Confirmed Ergocalciferol [Vitamin D2 50,000 unit PO FR 05/22/14 12/14/20 (DRISDOL)] Montelukast [Singulair] 10 mg PO HS 05/26/16 12/14/20 Mirabegron [Myrbetriq] 50 mg PO HS 02/07/20 12/14/20 Tozal Eye Vitamin 1 tab PO DAILY 02/07/20 12/14/20 Acetaminophen [Tylenol] 650 mg PO 5XD 12/14/20 12/14/20 Ibuprofen [Advil] 400 mg PO 5XD 12/14/20 12/14/20 Unknown Sinus Med 1 dose PO ONCE PRN 12/14/20 12/14/20 busPIRone HCl [Buspar] 5 mg PO TID PRN 12/14/20 12/14/20 Previous Rx's Medication Instructions Recorded Famotidine [Pepcid] 20 mg PO HS #30 tablet 12/14/20 guaiFENesin-DM 600/30MG [Mucinex 1 each PO Q12HR #10 tab.er.12h 12/14/20 Dm] Allergies Allergy/AdvReac Type Severity Reaction Status Date / Time No Known Allergies Allergy Verified 12/14/20 20:37 Review of Systems ROS Statement: Those systems with pertinent positive or pertinent negative responses have been documented in the HPI. ROS Other: All systems not noted in ROS Statement are negative. Past Medical History Past Medical History: Cancer, Eye Disorder, Hyperlipidemia, Hypertension, Memory Impairment, Musculoskeletal Disorder, Osteoarthritis (OA) Additional Past Medical History / Comment(s): hx cervical ca-1972, skin cancer (R) leg, fell 3 weeks ago & fx. vertebrae, urinary incontinence, takes metformin to suppress appetite, not for diabetes per daughter although recently not eating much because of back pain History of Any Multi-Drug Resistant Organisms: None Reported Past Surgical History: Back Surgery, Bladder Surgery, Hernia Repair, Hysterectomy, Orthopedic Surgery Additional Past Surgical History / Comment(s): BILAT CTR, FACE LIFT 1983, TUMMY TUCK-2000, LT KNEE SCOPE, bladder suspension Past Anesthesia/Blood Transfusion Reactions: Motion Sickness Past Psychological History: No Psychological Hx Reported Smoking Status: Former smoker Past Alcohol Use History: None Reported Past Drug Use History: None Reported - Past Family History Mother Family Medical History: No Reported History General Exam Limitations: no limitations General appearance: alert, in no apparent distress, other (This is a well- developed, well-nourished elderly female patient in no acute distress. Vital signs upon presentation temperature 98.2F, pulse 86, respirations 17, blood pressure 164/85, pulse ox 98% on room air.) Eye exam: Present: normal appearance, PERRL, EOMI. Absent: scleral icterus, conjunctival injection, periorbital swelling ENT exam: Present: normal exam, normal oropharynx, mucous membranes moist Respiratory exam: Present: normal lung sounds bilaterally. Absent: respiratory distress, wheezes, rales, rhonchi, stridor Cardiovascular Exam: Present: regular rate, normal rhythm, normal heart sounds. Absent: systolic murmur, diastolic murmur, rubs, gallop, clicks GI/Abdominal exam: Present: soft, normal bowel sounds. Absent: distended, tenderness, guarding, rebound, rigid Neurological exam: Present: alert, oriented X3, CN II-XII intact Psychiatric exam: Present: normal affect, normal mood Skin exam: Present: warm, dry, intact, normal color. Absent: rash Course Vital Signs 12/14/20 18:42 Temperature 98.2 F Pulse Rate 86 Respiratory 17 Rate Blood Pressure 164/85 O2 Sat by Pulse 98 Oximetry Medical Decision Making - Medical Decision Making 89-year-old female patient presented to the emergency department for evaluation of clear sputum production. Patient had 2 episodes one lasting 15 minutes yesterday one lasting about an hour today where she is coughing up clear sputum. States it is hard to clear. Denies any shortness of breath or chest pain. Physical examination reveals clear equal lung sounds. Oxygen saturation is 98%. She is in no distress. Chest x-ray was obtained and was unremarkable. I did discuss findings and results with the patient. We will try Mucinex DM and Pepcid. She is instructed to follow-up with her primary care physician for recheck in 1-2 days. Return parameters were discussed in detail. Patient verbalizes understanding and agrees with this plan. Case discussed with my attending Dr. De La Cruz. - Radiology Data Radiology results: report reviewed, image reviewed Two-view x-ray of the chest is obtained. Report reviewed in its entirety. Impression by Dr. Crowe shows mild subsegmental atelectasis left lung base that is increased compared to old exam. No heart failure. Disposition Clinical Impression: Sputum production Disposition: HOME SELF-CARE Condition: Good Instructions (If sedation given, give patient instructions): Acute Cough (ED) Additional Instructions: Take medications as directed. Follow up with your primary care physician for recheck Thursday. Return to the emergency department immediately for any new, worsening, or concerning symptoms. Prescriptions: guaiFENesin-DM 600/30MG [Mucinex Dm] 1 each PO Q12HR #10 tab.er.12h Famotidine [Pepcid] 20 mg PO HS #30 tablet Is patient prescribed a controlled substance at d/c from ED?: No Referrals: Tamia Medina DO [Primary Care Provider] - 1-2 days Time of Disposition: 20:29
--- NOTE | 2020-12-14 20:09 | XR ---
EXAMINATION TYPE: XR chest 2V DATE OF EXAM: 12/14/2020 COMPARISON: 02/12/2011 HISTORY: Sputum production TECHNIQUE: 2 views FINDINGS: There is no heart failure. There is some minimal atelectasis left lung base with poor inspi ration. There are no hilar masses. Bony thorax is intact. IMPRESSION: There is mild subsegmental atelectasis left lung base that is increased compared to old e xam. No heart failure.
[2020-12-14] MEDS ORDERED: FAMOTIDINE 20 MG TAB PO STA (20:28)
[2020-12-14] MEDS ORDERED: guaiFENesin-DM 600/30MG 1 EACH TAB.ER.12H PO STA (20:28)
[2020-12-14 21:10] VITALS: BP 145/72; PULSE 72; RESP 16
== END 2020-12-14 21:10 | disposition home or self-care (01) ==
LOC: EC 18:30
DX: R09.3 Abnormal sputum (principal); E78.5 Hyperlipidemia, unspecified; I10 Essential (primary) hypertension; M19.90 Unspecified osteoarthritis, unspecified site; Z85.828 Personal history of other malignant neoplasm of skin; Z85.41 Personal history of malignant neoplasm of cervix uteri; Z87.891 Personal history of nicotine dependence; Z90.710 Acquired absence of both cervix and uterus
CPT/HCPCS: 71046; 99283